=== PATIENT | male | born 1940 | race Caucasian/White ===

== ENCOUNTER 2018-06-09 21:58 | Inpatient (IN) | payer MEDICARE, OTHER ==
[~2018-06-09] VITALS: Ht 182.9 cm; Wt 81.2 kg
--- NOTE | ~2018-06-09 | OP ---
PATIENT NAME: AMY AGUILLON MEDICAL RECORD: [id number] :36 LOCATION:D.M2 D.2114 ADMISSION DATE:06/11/18 SURGEON: JONATHAN ROSEN MD DATE OF OPERATION: 06/12/2018 PROCEDURES: 1. Left heart catheterization. 2. Selective coronary angiography. 3. Left ventriculogram. INDICATION: Increased troponin, chest pain. DESCRIPTION OF PROCEDURE: After informed consent was obtained and after a detailed description of risks, benefits as well as alternative therapies, the patient elected to proceed with angiogram and heart catheterization. The right radial area was prepped, draped in normal sterile fashion. Right radial artery was cannulated via modified Seldinger technique with placement of 6-Wallisian sheath. All catheters exchanged through this sheath. FINDINGS: Left ventriculogram was performed in standard 30-degree RIKCS view, reveals good cardiac wall motion throughout all limits. Overall ejection fraction estimated at 50% to 55%. SELECTIVE CORONARY ANGIOGRAPHY: 1. Left main has no significant angiographic disease. 2. Left anterior descending has mild irregularities, but no flow-limiting stenosis. 3. The left circumflex has mild irregularities, but no flow-limiting stenosis. 4. Right coronary has no significant disease. OVERALL IMPRESSION: Minimal coronary artery disease is present. No flow-limiting stenosis. Center medical management on treatment of the heart rate in the atrial fibrillation. TRANSINT:[id number] Voice Confirmation ID: [id number] DOCUMENT ID: [id number] JONATHAN ROSEN MD at 1856 CC: [id number] DICTATION DATE: 06/12/18 1315 RADIATION CONTROL WORKER: 06/12/18 1444 DIS IN 06/13/18 [facility] [address] [place] [address]
--- NOTE | ~2018-06-09 | MORECARE ---
CASE MANAGEMENT DISCHARGE SUMMARY PATIENT: AMY AGUILLON UNIT: [id number] ADM DATE: 06/11/18 AGE: 78 : 38 SEX: M ROOM/BED: D.2114 AUTHOR: FREYA AIKEN PHYSICIAN: REFERRING PHYSICIAN: TYREE MARIA MD DATE OF SERVICE: 06/13/18 Discharge Plan Patient Name: AMY AGUILLON Facility: [facility]:[place] : 1940 Planned Disposition: Home Anticipated Discharge Date: 06/13/18 Discharge Date: 06/13/2018 Expected LOS: 2 Initial Reviewer: [email or web address] Initial Review Date: 06/13/2018 Generated: 06/13/18 6:04 pm Comments DCP- Discharge Planning Updated by [email or web address]: Benton Badillo on 06/13/18 3:[address] Patient Name: AMY AGUILLON Admission Status: ER Accout number: [id number] Admission Date: 06-11-2018 : 1940 Admission Diagnosis:OTHER SPECIFIED ABNORMAL FINDINGS OF BLOOD CHEMISTRY Attending: TYREE MARIA Current LOS: 2 Anticipated DC Date: 06-13-2018 Planned Disposition: Home Primary Insurance: MEDICARE A & B Discharge Planning Comments: CM ATTEMPTED TO MEET WITH PT FOR INITIAL ASSESSMENT OF DISCHARGE NEEDS. PT WAS NOT IN ROOM AT APPROXIMATELY 1600 HOURS. BED STRIPPED AND PT HAD BEEN DISCHARGED HOME ALREADY. Hand Riveter: Benton Badillo Coverage Notice Reviewer: [email or web address] Evli Storey [place] Notice Issued Date-Time: 06/10/2018 11:35 Notice Type: Medicare Outpatient Observation Notice Notice Delivered To: Patient Relationship to Patient: Self Automotive Product Engineer Name: Delivery Method: HAND - Hand Delivered Sheila Days: Prior Verbal Notification: Recipient Understood Notice: Yes Recipient Signature: Yes Med Rec Note Co-signed by Attending: Coverage Notice Comment: Patient Name: AMY AGUILLON Page [phone] at 1704 All edits/amendments must be made on the electronic document DICTATION DATE: 06/13/181702 PRINCIPLE INDUSTRIAL HYGIENIST: ATIF 06/13/181702 RPT#: [id number] DC DATE:06/13/18 STATUS: DIS IN [facility] [address] [place] [address] END OF REPORT
--- NOTE | ~2018-06-09 | HEMODYNAMI ---
PATIENT:AMY AGUILLON MEDICAL RECORD: [id number] : 36 [id number] ADMISSION DATE: 06/11/18 Generatedon:06/12/201813:17 Patient name: AMY AGUILLON Patient #: [id number] SSN: : 1940 Date of study: 06/12/2018 Page: Of Hemodynamic Procedure Report Patient Data Patient Demographics Procedure consent was obtained First Name: AMY Gender: Male Last Name: HENNA : 1940 Middle Initial: W Age: 78 year(s) Patient #: [id number] Race: Unknown Additional ID: [id number] Contact details [address]: [address] [place] [address] [place] State: [place] City: [place] Zip code: [address] Past Medical History Allergies Allergen Reaction Date Comments Reported Other allergy 06/12/2018 biaxin,PLAVIX, FLU VACCINE, PREVACID Admission Admission Data Admission Date: 06/11/2018 Admission Time: 14:45 Room #: .2114 Lab Results Lab Result Date: 06/12/2018 Lab Result Time: 0:00 Biochemistry Name Units Result Min Max BUN mg/dl 12 --(-*--)-- 7 18 Creatinine mg/dl 1 --(--*-)-- 0.6 1.3 CBC Name Units Result Min Max Hemoglobin g/dl 13.9 --(*---)-- 13.5 17.5 Procedure Procedure Types Cath Procedure Diagnostic Procedure LHC LHC w/Coronaries Procedure Description Procedure Date Procedure Date: 06/12/2018 Procedure Start Time: 13:03 Procedure End Time: 13:17 Procedure Staff Name Function Jeremie Weber MD Performing Physician Luna Aguilera RT Monitor Gerardo Smyth RT Scrub Park Solis RN Nurse Procedure Data Cath Procedure Fluoroscopy Diagnostic fluoroscopy Total fluoroscopy Time: 2.4 time: 2.4 min min Diagnostic fluoroscopy Total fluoroscopy dose: 379 dose: 379 mGy mGy Contrast Material Contrast Material Type Amount (ml) Isovue 300 58 Entry Location Entry Primary Successful Side Size Upsize Upsize Entry Closure Vivas ccessful Closure Location (Fr) 1 (Fr) 2 (Fr) Remarks Device Remarks Radial Right 6 Fr Mechanical artery Short Compression Estimated blood loss: 5 ml Diagnostic catheters Device Type Used For End Catheter Placement DIAGNOSTIC [place] 110cm 5 Procedure Fr catheter ([id number]) Procedure Complications No complications Procedure Medications Medication Administration Route Dosage 0.9% NaCl I.V. 100 ml/hr Oxygen etCO2 Nasal cannula 2 l/min Lidocaine 2% added to field 20 Heparin Flush Bag added to field 2 bags (1000units/500ml NS) Radial Cocktail added to field 1 syringe (Verapomil 2mg/Nitro 400mcg/Heparin 1500units) Lopressor I.V. 5 mg Versed I.V. 2 mg Fentanyl I.V. 50 mcg Hemodynamics Rest Pre Cath Intra NCS Post Cath Vital Signs Time Heart Resp SPO2 etCO2 NIBP (mmHg) Rhythm Pain Sedation Rate (ipm) (%) (mmHg) Status Level (bpm) 13:00:04 93 22 100 35 166/97(133) NSR 0 (11) 10(A) , No pain 13:04:16 89 17 97 37.6 149/81(113) NSR 0 (11) 10(A) , No pain 13:08:28 93 20 98 36 145/80(104) NSR 0 (11) 10(A) , No pain 13:12:40 71 19 97 37.4 146/81(99) NSR 0 (11) 10(A) , No pain 13:16:56 65 17 93 147/81(101) NSR 0 (11) 10(A) , No pain Medications Time Medication Route Dose Verified Delivered Reason Notes E ffectiveness by by 12:59:02 0.9% NaCl I.V. 100 Jeremie Park used for ml/hr Tia Solis filler blender 12:59:05 Fentanyl I.V. 50 mcg Jeremie Park for Tia Solis sedation RN 12:59:09 Oxygen etCO2 2 l/min Jeremie Park used for Nasal Tia Solis procedure cannula RN 12:59:15 Lidocaine 2% added 20ml Jeremie Jeremie for local to vial Tia Weber MD anesthetic field 12:59:20 Heparin Flush added 2 bags Jeremie Chao used for Bag to Tia Weber MD procedure (1000units/500ml field NS) 12:59:29 Radial Cocktail added 1 Jeremie Chao used for (Verapomil to syringe Tia Weber MD procedure 2mg/Nitro field 400mcg/Heparin 1500units) 12:59:52 Versed I.V. 2 mg Jeremie Park for Tia Solis sedation RN 13:09:58 Lopressor I.V. 5 mg Jeremie Riceyla Per Tia Solis physician soft iron inspector Log Time Note 12:12:27 Time tracking: Regular hours (M-F 7:00 - 5:00) 12:12:32 Plan of Care:Hemodynamics will remain stable., Cardiac rhythm will remain stable., Comfort level will be maintained., Respiratory function will remain adequate., Patient/ family verbilizes understanding of procedure., Procedure tolerated without complication., Recovers from procedure without complications.. 12:12:34 Signed procedure consent form obtained from patient. 12:12:42 H&P Date Dictated: 06/10/2018 Within 30 days and on chart.. 12:15:55 Luna Aguilera RT(R) sent for patient. Start room use. 12:28:52 Patient received from Med II to CCL 1 Alert and oriented. Tansferred to table in Supine position. 12:28:54 Warm blankets applied, and ann hugger turned on for patient comfort. 12:28:54 Correct patient and procedure confirmed by team. 12:28:58 ECG and BP/O2 sat monitors applied to patient. 12:29:00 Pre-procedure instructions explained to patient. 12:29:01 Pre-op teaching completed and patient verbalized understanding. 12:29:03 Family in waiting room. 12:29:07 Patient NPO since Midnight. 12:48:48 Full Disclosure recording started 12:49:26 Patient allergic to Other allergybiaxin,PLAVIX, FLU VACCINE, PREVACID 12:50:01 EFFIENT TAKEN ON THE . 12:50:04 Patient diabetic? Yes. 12:50:06 If diabetic: On Metformin? No 12:50:08 Previous problem with sedation/anesthesia? No ? 12:50:09 Snore? Yes 12:50:10 Sleep apnea? No 12:50:11 Deviated septum? No 12:50:12 Opens mouth fully? Yes 12:50:17 Sticks out tongue? Yes 12:50:19 Airway obstruction? No ? 12:50:23 Dentures? No ? 12:50:24 Modified Marcelo's test Ulnar < 7 seconds 12:50:26 Patient pain scale 0/10 ?. 12:50:34 IV right forearm D/C'd due to infiltration. 12:51:11 Lab Result : Creatinine 1 mg/dl 12:51:11 Lab Result : BUN 12 mg/dl 12:51:11 Lab Result : Hemoglobin 13.9 g/dl 12:51:13 Lab results completed and on chart. 12:51:17 Right Radial & Right Groin area was prepped with chlora-prep and draped in sterile fashion 12:51:18 Alarms reviewed by R. N. 12:51:19 Sharps counted by scrub and verified by R.N. 12:52:31 Use device set Radial Dx or PCI 12:52:32 ACIST Syringe (90166) opened to sterile field. 12:52:33 Bag Decanter (2002S) opened to sterile field. 12:52:34 ACIST Hand Control (51404) opened to sterile field. 12:52:34 ACIST Manifold (85125) opened to sterile field. 12:52:35 Tegaderm 4 x 4 (1626W) opened to sterile field. 12:52:37 Medline Cath Pack ([id number]) opened to sterile field. 12:52:37 DIAGNOSTIC WIRE .035 260cm J wire (940721) opened to sterile field. 12:52:38 MBrace Wrist Support ([id number]) opened to sterile field. 12:52:41 SHEATH 6Fr Prelude Radial ([id number]) opened to sterile field. 12:58:48 --------ALL STOP TIME OUT------ 12:58:49 Final Timeout: patient, procedure, and site verified with staff and physician. All members of the team are in agreement. 12:58:51 Vital chart was started 12:58:51 Right Radial & Right Groin site verified by team. 12:58:53 Physical assessment completed. ASA score P 2 - A patient with mild systemic disease as per Jeremie Weber MD. 12:58:56 Sedation plan: IV Moderate Sedation Medication:Versed, Fentanyl 12:59:02 0.9% NaCl 100 ml/hr I.V. was administered by Park Solis RN; used for procedure; 12:59:05 Fentanyl 50 mcg I.V. was administered by Park Solis RN; for sedation; 12:59:09 Oxygen 2 l/min etCO2 Nasal cannula was administered by Park Solis RN; used for procedure; 12:59:09 IV started by Park Solis RN inleft hand with a 22 gauge IV catheter with 0.9% NaCl at KVO. 12:59:15 Lidocaine 2% 20ml vial added to field was administered by Jeremie Weber MD; for local anesthetic; 12:59:20 Heparin Flush Bag (1000units/500ml NS) 2 bags added to field was administered by Jeremie Weber MD; used for procedure; 12:59:29 Radial Cocktail (Verapomil 2mg/Nitro 400mcg/Heparin 1500units) 1 syringe added to field was administered by Jeremie Weber MD; used for procedure; 12:59:52 Versed 2 mg I.V. was administered by Park Solis RN; for sedation; 13:03:15 Zero performed for pressure channel P1 13:03:26 Procedure started. 13:03:31 Local anesthetic to right radial artery with Lidocaine 2% by Jeremie Weber MD.INITIAL ACCESS ONLY 13:04:07 A 6 Fr Short sheath was inserted into the Right Radial artery 13:04:39 A DIAGNOSTIC [place] 110cm 5 Fr catheter (859026) was advanced over the wire and used for Procedure. 13:05:29 LV gram done using RICKS 13:05:32 Injector settings: Ml/sec: 7, Volume: 15, 13:05:45 EF : 55 % 13:06:36 RCA angiography performed. 13:07:05 UNABLE TO ENGAGE LCA 13:07:13 Catheter exchanged over wire. 13:07:30 GUIDE 6FR XB 3.5 catheter ([id number]) opened to sterile field. 13:07:45 6 Fr XB 3.5 guide catheter was inserted over the wire 13:08:51 Guide catheter removed. 13:09:16 GUIDE 6FR XBC 3 (95942397) opened to sterile field. 13:09:27 6 Fr XBC 3 guide catheter was inserted over the wire 13:09:58 Lopressor 5 mg I.V. was administered by Park Solis RN; Per physician; 13:10:34 Guide catheter removed. 13:10:40 Procedure ended.(Physican Out) 13:10:57 TR BAND Standard ([id number]) opened to sterile field. 13:12:18 Sheath removed intact; hemostasis achieved with Mechanical Compression to the Right Radial artery. 13:12:24 Fluoroscopy time 02.40 minutes. 13:12:30 Fluoroscopy dose: 379 mGy 13:12:30 Flurop Dose total: 379 13:12:40 Contrast amount:Isovue 300 58ml. 13:12:42 Sharps counted by scrub and verified by R.N. 13:12:44 TR band inflated with 9cc of air. 13:12:48 Post-procedure physical assessment completed. ASA score P 2 - A patient with mild systemic disease as per Jeremie Weber MD. 13:12:52 Post procedure rhythm: atrial fibrillation 13:12:55 Estimated blood loss: 5 ml 13:12:56 Post procedure instruction explained to patient.Patient verbalizes understanding. 13:12:56 Patient needs reinforcement of post procedure teaching. 13:16:52 Procedure and supply charges have been captured, reviewed, submitted and are correct. 13:16:54 Procedure Complication : No complications 13:16:56 Vital chart was stopped 13:16:56 See physician's report for complete and final results. 13:16:58 Report given to PCU. 13:17:00 Patient transfered to PCU with Bed. 13:17:02 Procedure ended. 13:17:02 Full Disclosure recording stopped 13:17:04 End room use (Document Last) Device Usage Item Name Manufacture Quantity Catalog Number Hospital Part Current M inimal Lot# / Charge Number Stock Stock Serial# Code ACIST Syringe Acist 1 69462 516118 151533 159632 2 0 (52312) [employer] Bag Decanter Microtek 1 259245 18924 237271 5 () Medical Inc. ACIST Hand Acist 1 63317 792023 830118 715169 5 Control (80702) [employer] Inc ACIST Manifold Acist 1 26336 581399 472630 245813 5 (70131) [employer] Systems Inc Tegaderm 4 x 4 3M 1 1626W 785731 308209 293546 5 (1626W) Medline Cath Medline 1 [id number] 840693 12094 358296 5 Pack ([id number]) DIAGNOSTIC WIRE St Rico 1 299618 490859 184553 032986 3 0 .035 260cm J wire (270482) MBrace Wrist Advanced 1 140-0250-00 738298 76386 595761 5 Support Vascular ([id number]) Dynamics SHEATH 6Fr Merit 1 [id number] 860510 741121 086541 5 Prelude Radial Medical ([id number]) DIAGNOSTIC Terumo 1 40-9593 797570 061152 152317 5 [place] 110cm 5 Fr catheter (904510) GUIDE 6FR XB Cardinal 1 [id number] 039013 412602 510557 2 3.5 catheter Health (26492965) GUIDE 6FR XBC 3 Cardinal 1 [id number] 121091 63736 473771 5 ([id number]) Health TR BAND Terumo 1 [id number] 311472 478858 846627 4 0 Standard ([id number]) Signature Audit Arabi Stage Time Signature Unsigned Intra-Procedure 06/12/2018 Luna Aguilera 1:17:46 PM RT(R) Signatures Monitor : Luna Aguilera Signature : RT Date : Time : [address] [place] [address]
--- NOTE | ~2018-06-09 | OP ---
PATIENT NAME: AMY AGUILLON MEDICAL RECORD: [id number] :36 LOCATION:D. D.2114 ADMISSION DATE:06/11/18 SURGEON: HONG PEARL MD DATE OF OPERATION: 06/13/2018 PREOPERATIVE DIAGNOSES: 1. Atypical chest pain. 2. Biliary dyskinesia. POSTOPERATIVE DIAGNOSES: 1. Atypical chest pain. 2. Biliary dyskinesia. 3. Hepatomegaly with some nodularity to the liver. PROCEDURES: 1. Laparoscopic cholecystectomy. 2. Intraoperative cholangiography without immediate surgeon interpretation. 3. A 14-gauge core needle liver biopsies. SURGEON: Hong Pearl MD PIECER: None. BLOOD LOSS: Minimal. ANESTHESIA: General. COMPLICATIONS: None. The risks, possible complications, and alternatives to the procedures were explained to the patient. He elects to proceed. OPERATIVE COURSE: The patient was conveyed to the operating room electively on 06/13/2018. General anesthesia was induced by the anesthesia staff. The abdomen was sterilely prepped and draped. A small skin livan was accomplished in the left upper quadrant. A Veress needle was inserted through the skin livan into the peritoneal cavity. CO2 insufflation was begun. Once a sufficient pneumoperitoneum had been achieved, a 5 mm trocar was inserted through an incision in the right upper quadrant. Under direct internal vision utilizing a television camera, a 12 mm trocar was inserted through an incision at the umbilicus. Another 5 mm trocar was inserted through an incision in the epigastrium. Another 5 mm trocar was inserted far laterally in the right upper quadrant. During insertion of the Veress needle and all trocars, there appeared to have been no injury to the bowels, any intraperitoneal or retroperitoneal structures. The indication for the liver biopsy was hepatomegaly. Under laparoscopic guidance, I percutaneously accessed the right upper quadrant utilizing an 14-gauge core needle liver biopsy device. Cores were obtained over the convexity of the liver. The biopsy sites were made hemostatic with the electrocautery. I then advanced a cholangiogram trocar. I punctured the fundus of the gallbladder. I aspirated bile. I then injected dye. Under real time fluoroscopy, static fluoroscopic images were obtained. These are cholangiographic images that are sent to the radiologist for interpretation. OPERATIVE REPORT [id number] AMY AGUILLON I then aspirated bile and removed the cholangiogram trocar. The gallbladder was grasped and retracted cephalad. The infundibulum was grasped and retracted laterally. The critical view was identified. Blunt dissection was begun on the triangle of Calot. One cystic artery and one cystic duct were identified. These were clipped multiply and divided between clips. The gallbladder was then excised from its bed in the liver. It was placed within a bag retrieval device and was withdrawn through the umbilical fascial defect. A powdered hemostatic agent was applied to the gallbladder bed for additional hemostasis. The 12 mm trocar was replaced and the abdomen reinsufflated. I irrigated and aspirated in the right upper quadrant. There was no bleeding even at low pressure of 8. Utilizing the Nixon-Pablito suture closure device and a 0 Vicryl suture, the umbilical fascia was closed. All the trocars were removed and the abdomen desufflated. The skin at the umbilicus was closed with interrupted 4-0 Vicryl Rapide sutures. The other skin incisions were closed with interrupted intracuticular 3-0 Vicryls. Benzoin and Steri-Strips were applied. The patient was then extubated and conveyed to the post-anesthesia care unit, where he was in stable condition. He will be dismissed with an analgesia script. TRANSINT:[id number] Voice Confirmation ID: [id number] DOCUMENT ID: [id number] HONG PEARL MD at 1638 CC: CALLUM SCHWARTZ MD, TYREE MARIA and JONATHAN ROSEN [id number] DICTATION DATE: 06/13/18 1336 BRAND LEAD: 06/13/18 1418 DIS IN 06/13/18 [facility] [address] [place] [address]
[2018-06-09] MEDS ORDERED: AGGRENOX 200/251 CAP PO (22:10)
[2018-06-09] MEDS ORDERED: FAMOTIDINE10 MG (22:10)
[2018-06-09] MEDS ORDERED: LANOXIN125 MCG PO (22:10)
[2018-06-09] MEDS ORDERED: TOPROL XL25 MG PO (22:10)
[2018-06-09] MEDS ORDERED: LISINOPRIL2.5 MG PO (22:10)
[2018-06-09] MEDS ORDERED: ZOCOR5 MG PO (22:10)
[2018-06-09 22:24] VITALS: BP 126/78
[2018-06-09 22:40] LABS: BASOPHILS 0.6 % (0-2); EOSINOPHILS 1.7 % (0-7); HEMATOCRIT 43.5 % (42.0-54.0); HEMOGLOBIN 14.2 g/dL (13.5-17.5); IMMATURE GRANULOCYTES 0.1 % (0-5); LYMPHOCYTES 13.9 % (15-50); MCH 29.7 pg (26.0-34.0); MCHC 32.6 g/dL (31.0-37.0); MEAN PLATELET VOLUME 13.1 fL (7.4-10.4); MONOCYTES 11.7 % (2-11); PLATELET COUNT 159 10x3/uL (130-400); RBC 4.78 10x6/uL (4.20-6.10); RDW 13.7 % (11.5-14.5); WBC 8.7 10x3/uL (4.8-10.8)
[2018-06-09 22:50] LABS: ALBUMIN 3.8 g/dL (3.4-5.0); ALKALINE PHOSPHATASE 60 U/L (46-116); ALT (SGPT) 25 U/L (10-68); BILIRUBIN - TOTAL 0.38 mg/dL (0.2-1.3); CALC OSMOLALITY 278 mosm/kg (275-300); CALCIUM 8.8 mg/dL (8.5-10.1); CARBON DIOXIDE 28.1 mmol/L (21.0-32.0); CHLORIDE - SERUM 103 mmol/L (98-107); GLUCOSE 144 mg/dL (74-106); POTASSIUM - SERUM 4.6 mmol/L (3.5-5.1); PROTEIN - SERUM 7.5 g/dL (6.4-8.2); SODIUM 138 mmol/L (136-145); UREA NITROGEN 12 mg/dL (7-18); eGFR NON AFRICAN AMERICAN 76 mL/min (90-120)
[2018-06-09 22:58] LABS: CREATINE KINASE 32 UL (21-232); DIGOXIN 0.72 ng/mL (0.90-2.00); PRO BNP 1541 pg/mL (0-450)
[2018-06-09 23:07] LABS: APTT 29.5 SECONDS (22.8-39.4); INR 0.99 (0.85-1.17); PROTIME 12.7 SECONDS (11.6-15.0)
[2018-06-09 23:08] LABS: D-DIMER-QUANTITATIVE 0.8 ug/mLFEU (0.20-0.54)
[2018-06-09 23:23] LABS: APPEARANCE CLEAR (CLEAR); BILIRUBIN NEGATIVE (NEGATIVE); COLOR YELLOW (YELLOW); GLUCOSE 1000 mg/dL (NEGATIVE); KETONE NEGATIVE (NEGATIVE); NITRITE NEGATIVE (NEGATIVE); PROTEIN NEGATIVE (NEGATIVE); UROBILINOGEN NORMAL (NORMAL)
[2018-06-09 23:24] LABS: BACTERIA FEW /hpf (NONE SEEN); EPITHELIAL CELLS 0-5 /hpf (0-5); RED CELLS - URINE 0-5 /hpf (0-5); WHITE CELLS - URINE 0-5 /hpf (0-5)
[2018-06-09 23:43] LABS: CKMB 1.3 U/L (0.0-3.6); TROPONIN-I < 0.017 ng/mL (0.000-0.060)
[2018-06-10 02:46] VITALS: BP 133/54; BMI 24.3
[2018-06-10 06:36] LABS: CALC OSMOLALITY 277 mosm/kg (275-300); CALCIUM 8.8 mg/dL (8.5-10.1); CARBON DIOXIDE 29.5 mmol/L (21.0-32.0); CHLORIDE - SERUM 102 mmol/L (98-107); GLUCOSE 158 mg/dL (74-106); POTASSIUM - SERUM 4.7 mmol/L (3.5-5.1); SODIUM 138 mmol/L (136-145); UREA NITROGEN 10 mg/dL (7-18); eGFR NON AFRICAN AMERICAN 76 mL/min (90-120)
[2018-06-10 06:55] LABS: BASOPHILS 0.5 % (0-2); EOSINOPHILS 0.9 % (0-7); HEMATOCRIT 42.6 % (42.0-54.0); HEMOGLOBIN 13.7 g/dL (13.5-17.5); IMMATURE GRANULOCYTES 0.2 % (0-5); LYMPHOCYTES 17.6 % (15-50); MCH 29.4 pg (26.0-34.0); MCHC 32.2 g/dL (31.0-37.0); MCV 91.4 fL (80.0-100.0); MEAN PLATELET VOLUME 13.3 fL (7.4-10.4); MONOCYTES 12.6 % (2-11); NEUTROPHILS 68.2 % (40-80); PLATELET COUNT 165 10x3/uL (130-400); RBC 4.66 10x6/uL (4.20-6.10); WBC 9.3 10x3/uL (4.8-10.8)
[2018-06-10 08:54] VITALS: BP 126/64
[2018-06-10 11:00] VITALS: BP 116/61
[2018-06-10 11:01] VITALS: BMI 24.2
[2018-06-10 14:05] VITALS: Ht 182.9 cm; Wt 81.2 kg
[2018-06-10 15:00] VITALS: BP 122/71
[2018-06-10 22:21] VITALS: BP 159/82
[2018-06-11 00:54] VITALS: BP 152/74
[2018-06-11 05:32] VITALS: BP 161/85
[2018-06-11 05:53] LABS: BASOPHILS 0.3 % (0-2); EOSINOPHILS 0.7 % (0-7); HEMATOCRIT 42.6 % (42.0-54.0); HEMOGLOBIN 13.9 g/dL (13.5-17.5); IMMATURE GRANULOCYTES 0.3 % (0-5); LYMPHOCYTES 10.8 % (15-50); MCH 29.7 pg (26.0-34.0); MCHC 32.6 g/dL (31.0-37.0); MEAN PLATELET VOLUME 13.3 fL (7.4-10.4); MONOCYTES 15.1 % (2-11); NEUTROPHILS 72.8 % (40-80); PLATELET COUNT 166 10x3/uL (130-400); RBC 4.68 10x6/uL (4.20-6.10); RDW 13.8 % (11.5-14.5); WBC 9.5 10x3/uL (4.8-10.8)
[2018-06-11 06:33] LABS: ALBUMIN 3.2 g/dL (3.4-5.0); ALKALINE PHOSPHATASE 54 U/L (46-116); ALT (SGPT) 16 U/L (10-68); BILIRUBIN - TOTAL 1.18 mg/dL (0.2-1.3); CALC OSMOLALITY 279 mosm/kg (275-300); CALCIUM 9.1 mg/dL (8.5-10.1); CARBON DIOXIDE 26.8 mmol/L (21.0-32.0); CHLORIDE - SERUM 101 mmol/L (98-107); GLUCOSE 171 mg/dL (74-106); MAGNESIUM - SERUM 1.8 mg/dL (1.8-2.4); POTASSIUM - SERUM 4.2 mmol/L (3.5-5.1); PROTEIN - SERUM 7.1 g/dL (6.4-8.2); SODIUM 138 mmol/L (136-145); UREA NITROGEN 12 mg/dL (7-18); eGFR NON AFRICAN AMERICAN 76 mL/min (90-120)
[2018-06-11 08:31] VITALS: BP 157/85
[2018-06-11 12:00] VITALS: BP 163/79
[2018-06-11 16:03] VITALS: BP 150/75
[2018-06-11 20:00] VITALS: BP 151/93
[2018-06-12 04:00] VITALS: BP 156/79
[2018-06-12 05:55] LABS: BASOPHILS 0.2 % (0-2); EOSINOPHILS 1.1 % (0-7); HEMATOCRIT 41.3 % (42.0-54.0); HEMOGLOBIN 13.5 g/dL (13.5-17.5); IMMATURE GRANULOCYTES 0.3 % (0-5); LYMPHOCYTES 8.4 % (15-50); MCH 29.6 pg (26.0-34.0); MCHC 32.7 g/dL (31.0-37.0); MCV 90.6 fL (80.0-100.0); MEAN PLATELET VOLUME 13.2 fL (7.4-10.4); MONOCYTES 14.5 % (2-11); NEUTROPHILS 75.5 % (40-80); PLATELET COUNT 164 10x3/uL (130-400); RBC 4.56 10x6/uL (4.20-6.10); RDW 13.7 % (11.5-14.5); WBC 10.3 10x3/uL (4.8-10.8)
[2018-06-12 06:31] LABS: ALBUMIN 2.9 g/dL (3.4-5.0); ALKALINE PHOSPHATASE 51 U/L (46-116); ALT (SGPT) 15 U/L (10-68); BILIRUBIN - TOTAL 0.81 mg/dL (0.2-1.3); CALC OSMOLALITY 278 mosm/kg (275-300); CALCIUM 8.6 mg/dL (8.5-10.1); CARBON DIOXIDE 28.3 mmol/L (21.0-32.0); CHLORIDE - SERUM 102 mmol/L (98-107); GLUCOSE 174 mg/dL (74-106); MAGNESIUM - SERUM 1.9 mg/dL (1.8-2.4); POTASSIUM - SERUM 4.4 mmol/L (3.5-5.1); PROTEIN - SERUM 6.9 g/dL (6.4-8.2); SODIUM 137 mmol/L (136-145); UREA NITROGEN 15 mg/dL (7-18); eGFR NON AFRICAN AMERICAN 76 mL/min (90-120)
[2018-06-12 08:22] VITALS: BP 156/86
[2018-06-12 13:18] VITALS: BP 143/83
[2018-06-12 17:13] VITALS: BP 144/57
[2018-06-12 21:57] VITALS: BP 150/82
[2018-06-13] VITALS (7 sets, daily range): BP systolic 83–164; BP diastolic 25–89
[2018-06-13 04:06] LABS: BASOPHILS 0.4 % (0-2); EOSINOPHILS 1.7 % (0-7); HEMATOCRIT 40.5 % (42.0-54.0); IMMATURE GRANULOCYTES 0.1 % (0-5); MCHC 32.1 g/dL (31.0-37.0); MCV 90.4 fL (80.0-100.0); MEAN PLATELET VOLUME 12.7 fL (7.4-10.4); NEUTROPHILS 71.8 % (40-80); PLATELET COUNT 174 10x3/uL (130-400); RBC 4.48 10x6/uL (4.20-6.10); RDW 13.5 % (11.5-14.5); WBC 10.1 10x3/uL (4.8-10.8)
[2018-06-13 04:47] LABS: ALBUMIN 2.8 g/dL (3.4-5.0); ALKALINE PHOSPHATASE 50 U/L (46-116); BILIRUBIN - TOTAL 0.64 mg/dL (0.2-1.3); CALC OSMOLALITY 281 mosm/kg (275-300); CALCIUM 8.5 mg/dL (8.5-10.1); CARBON DIOXIDE 29.2 mmol/L (21.0-32.0); CHLORIDE - SERUM 103 mmol/L (98-107); GLUCOSE 162 mg/dL (74-106); POTASSIUM - SERUM 4.6 mmol/L (3.5-5.1); PROTEIN - SERUM 6.5 g/dL (6.4-8.2); SODIUM 138 mmol/L (136-145); UREA NITROGEN 17 mg/dL (7-18); eGFR NON AFRICAN AMERICAN 76 mL/min (90-120)
[2018-06-13 04:55] LABS: ALT (SGPT) 44 U/L (10-68)
== END 2018-06-13 16:06 | disposition home or self-care (01) | DRG 418 ==
LOC: D.ER 21:58 → OBSVTIME 06-10 01:15 → D.M2 06-10 01:15
PROVIDERS: Emergency Medicine; Family Medicine; Internal Medicine Interventional Cardiology; Surgery
PROC: B2111ZZ Fluoroscopy of Multiple Coronary Arteries using Low Osmolar Contrast (ICD-10-PCS; 2018-06-12)
PROC: B2151ZZ Fluoroscopy of Left Heart using Low Osmolar Contrast (ICD-10-PCS; 2018-06-12)
PROC: 4A023N7 Measurement of Cardiac Sampling and Pressure, Left Heart, Percutaneous Approach (ICD-10-PCS; 2018-06-12)
PROC: 0FB14ZX Excision of Right Lobe Liver, Percutaneous Endoscopic Approach, Diagnostic (ICD-10-PCS; 2018-06-13)
PROC: BF121ZZ Fluoroscopy of Gallbladder using Low Osmolar Contrast (ICD-10-PCS; 2018-06-13)
PROC: 0FT44ZZ Resection of Gallbladder, Percutaneous Endoscopic Approach (ICD-10-PCS; principal; 2018-06-13 14:30)
DX: K82.8 Other specified diseases of gallbladder (principal); I24.8 Other forms of acute ischemic heart disease; I25.10 Atherosclerotic heart disease of native coronary artery without angina pectoris; R79.89 Other specified abnormal findings of blood chemistry; E78.5 Hyperlipidemia, unspecified; I10 Essential (primary) hypertension; E11.9 Type 2 diabetes mellitus without complications; K76.9 Liver disease, unspecified; R16.0 Hepatomegaly, not elsewhere classified; I48.2 Chronic atrial fibrillation

== ENCOUNTER 2018-06-24 12:47 | Emergency (ER) | payer MEDICARE, OTHER ==
[~2018-06-24] VITALS: Ht 182.9 cm; Wt 84.5 kg
[~2018-06-24 12:47] MED LIST: AGGRENOX 200/251 CAP PO; FAMOTIDINE10 MG; LANOXIN125 MCG PO; LISINOPRIL2.5 MG PO; TOPROL XL25 MG PO; ZOCOR5 MG PO
[2018-06-24 12:49] VITALS: Ht 182.9 cm; Wt 84.5 kg
[2018-06-24] MEDS ORDERED: BACTRIM DS1 TAB PO (13:52)
[2018-06-24] MEDS ORDERED: LOMOTIL 2.5-0.1 EAC1 PO (13:52)
[2018-06-24 14:28] VITALS: BP 130/67
== END 2018-06-24 14:29 | disposition home or self-care (01) ==
LOC: D.ER 12:47
DX: R19.7 Diarrhea, unspecified (principal); J40 Bronchitis, not specified as acute or chronic; E11.9 Type 2 diabetes mellitus without complications; I10 Essential (primary) hypertension